=== PATIENT | male | born 1975 | race Caucasian/White ===

== ENCOUNTER 2016-06-28 13:47 | Emergency (ER) | payer MEDICAID ==
[~2016-06-28] VITALS: Ht 177.8 cm; Wt 81.6 kg
[~2016-06-28 13:47] MED LIST: LEV500T PO; LEVE500T22 PO; VENL37.572 PO
[2016-06-28 16:30] VITALS: BP 143/80
[2016-06-28] MEDS ORDERED: KETOROLAC TROMETH 60MG/2ML VIAL IM ONE (17:00)
[2016-06-28] MEDS ORDERED: OXYCODONE W/ ACETAMINOPHEN 5/325MG TABLET PO ONE (18:15)
== END 2016-06-28 18:58 | disposition home or self-care (01) ==
LOC: ER 13:54
DX: N43.3 Hydrocele, unspecified (principal); N50.812 Left testicular pain; N50.811 Right testicular pain; F12.10 Cannabis abuse, uncomplicated; Z79.899 Other long term (current) drug therapy
CPT/HCPCS: 76870; 96372; 99284; J1885

== ENCOUNTER 2021-04-23 08:29 | Emergency (ER) | payer MEDICAID, OTHER ==
[~2021-04-23] VITALS: Ht 177.8 cm; Wt 77.1 kg
[~2021-04-23 08:29] MED LIST changes: -LEVE500T22 PO; +LEVE500T32 PO
[2021-04-23 08:38] VITALS: BP 122/88
== END 2021-04-23 12:14 | disposition left against medical advice (07) ==
LOC: ER 08:29
DX: S31.31XA Laceration without foreign body of scrotum and testes, initial encounter (principal); Z53.21 Procedure and treatment not carried out due to patient leaving prior to being seen by health care provider; W54.0XXA Bitten by dog, initial encounter; Y93.89 Activity, other specified; Y99.8 Other external cause status; Y92.89 Other specified places as the place of occurrence of the external cause